=== PATIENT | male | born 1950 | race African-American/Black ===

== ENCOUNTER 2020-05-21 12:17 | Outpatient (CLI) | payer MEDICARE, MEDICAID, SELFPAY ==
--- NOTE | 2020-05-21 16:39 | WPDPFTINT ---
PFT Interpretation PFT Interpretation: DOS: 05/21/2020 REQUESTING: Dr. Ying Martin REASON FOR TESTING: COPD PULMONARY FUNCTION TESTS Results are not totally reliable, as the patient was coughing during testing. Spirometry: FEV1 is 113%, FVC 97%, and FEV1% is 77%, all values are normal. There is no response to bronchodilator. Lung volumes: TLC 109%, RV 115%, both are normal. No air trapping. Airway resistance is increased at 148%. Diffusion: DLCO is 107%, normal. Flow volume loop: Inspiratory limb was limited in size. Normal expiratory limb. IMPRESSION: Normal spirometry, normal lung volumes, and normal diffusion. Mild increase in airway resistance. The patient had difficulties with coughing during the testing, yet was able to produce normal results other than the inspiratory loop. Amalia Marvin MD
== END 2020-05-21 12:18 | disposition home or self-care (01) ==
PROVIDERS: PCP Family Medicine; Visit Provider Family Medicine
DX: J44.9 Chronic obstructive pulmonary disease, unspecified (principal)
CPT/HCPCS: 94060; 94726; 94729